=== PATIENT | female | born 1955 | race Caucasian/White ===

== ENCOUNTER 2016-08-29 14:22 | Observation (INO) ==
--- NOTE | 2016-08-29 14:39 | Emergency Department Note ---
Disposition Clinical Impression: Lower gastrointestinal hemorrhage Disposition: Admitted As Inpatient Forms: ED Satisfaction Letter GI Bleed HPI - General Chief complaint: ED GI Bleed Stated complaint: Rectal Bleeding Time Seen by Provider: 08/29/16 14:38 Source: patient Limitations: no limitations Nursing Notes Reviewed: Yes Vital Signs Reviewed: Yes - History of Present Illness Pt Subjective Complaint: blood streaked stool Onset (ago): hour(s) (6) Consistency: intermittent Severity: mild Improves with: nothing Worsens with: bowel movement Context: anticoagulant use (Aspirin and Plavix) Associated symptoms: Reports: other bleeding source (Had a colonoscopy this week ) Treatments Prior to Arrival: none - Related Data Home Medications Medication Instructions Recorded Confirmed Aspirin Enteric Coated [Aspirin EC] 81 mg PO DAILY #0 07/22/15 08/13/15 Budesonide/Formoterol 160/4.5 2 puff IH BIDR #0 07/22/15 08/13/15 [Symbicort 160/4.5] Clopidogrel Bisulfate [Plavix] 75 mg PO DAILY 07/22/15 08/13/15 Nitroglycerin [Nitrostat] 0.4 mg SL PRN PRN 07/22/15 08/13/15 Omeprazole [PriLOSEC] 40 mg PO DAILY 07/22/15 08/13/15 Vitamin E Acid Succinate [Vitamin 800 unit PO DAILY 07/22/15 08/13/15 E] Lisinopril [Zestril] 30 mg PO DAILY 08/07/15 08/13/15 Atorvastatin [Lipitor] 20 mg PO HS 08/13/15 08/13/15 Glimepiride 2 mg PO DAILY 08/13/15 08/13/15 Lasix 40 mg PO DAILY PRN 08/13/15 08/13/15 Metformin HCl 1,000 mg PO BIDWM 08/13/15 08/13/15 Metoprolol [Lopressor] 25 mg PO BID 08/13/15 08/13/15 Neurontin 200 mg PO HS 08/13/15 08/13/15 Proair Hfa 2 puff IH QID PRN 08/13/15 08/13/15 Xanax 0.25 MG Tablet 0.25 mg PO BID PRN 08/13/15 08/13/15 Previous Rx's Medication Instructions Recorded Atorvastatin [Lipitor] 80 mg PO HS tablet 07/24/15 Collagenase Oint [Santyl] 1 appl TP DAILY #1 tube 07/24/15 Isosorbide MONOnitrate (24 HR) 120 mg PO DAILY tab.er.24h 07/24/15 [Imdur] Metoprolol [Lopressor] 50 mg PO BID tablet 07/24/15 Paroxetine [Paxil] 20 mg PO DAILY tablet 07/24/15 Allergies Allergy/AdvReac Type Severity Reaction Status Date / Time Penicillins [PCN] Allergy Anaphylaxis Verified 08/29/16 14:32 Hjjccov-Fak-Sau Reductase AdvReac Intermediate See Verified 08/29/16 14:32 Inhibitor Comments [Statins] bupropion [From Wellbutrin] AdvReac Depression Verified 08/29/16 14:32 All systems ED: reviewed and negative except as stated. Constitutional: Denies: weakness Cardiovascular: Denies: chest pain Gastrointestinal: Denies: nausea, vomiting, hematemesis Past Medical History - Past Medical History Source: patient, old records reviewed, nursing notes reviewed Medical history: Reports: COPD, coronary artery disease, diabetes, GERD, hyperlipidemia, hypertension, myocardial infarction Surgical history: Reports: cholecystectomy, coronary bypass (CABG), other Psychiatric history: Reports: no psych history - Social History Smoking Status: Former smoker Smokeless Tobacco Status: No Alcohol use: Reports: none Drug use: Reports: none Physical Exam - General Limitations: no limitations General appearance: alert, in no apparent distress - Head Head exam: atraumatic, normocephalic, normal inspection - Eye Eye exam: Present: normal appearance, PERRL, EOMI - Expanded Eye Exam Pupils: Left: reactive - ENT ENT exam: normal exam, normal oropharynx, mucous membranes moist - Expanded ENT Exam External ear exam: Present: normal external inspection Mouth exam: Present: normal external inspection Teeth exam: Present: normal inspection Throat exam: Present: normal inspection - Neck Neck exam: Present: normal inspection, full ROM, trachea midline - Chest Chest inspection: Present: normal inspection, symmetric chest wall rise - Respiratory Respiratory exam: Present: normal lung sounds bilaterally - Cardiovascular Cardiovascular exam: Present: regular rate, normal rhythm, normal heart sounds - Abdominal Exam Abdominal exam: Present: soft, Non-Tender. Absent: tenderness, distention, guarding, rebound, rigidity - Rectal Exam Account Service Representative present during exam: Yes Rectal exam: Present: normal inspection, normal rectal tone, bloody stool ( maroon ) - Extremities Exam Extremities exam: Present: normal inspection, full ROM. Absent: tenderness, pedal edema - Expanded Upper Extremity Exam Shoulder exam: Present: normal inspection, full ROM Arm exam: Present: normal inspection, full ROM Elbow exam: Present: normal inspection, full ROM Forearm/Wrist exam: Present: normal inspection, full ROM Hand exam: Present: normal inspection, full ROM Vascular exam: Normal: capillary refill, radial pulse - Expanded Lower Extremity Exam Hip/Pelvis exam: Present: normal inspection, full ROM Upper leg exam: Present: normal inspection, full ROM Knee exam: Present: normal inspection, full ROM Lower leg exam: Present: normal inspection, full ROM Ankle exam: Present: normal inspection, full ROM Foot/toe exam: Present: normal inspection, full ROM Neurovascular/Tendon exam: Absent: motor deficit, sensory deficit, tendon deficit - Back Exam Back exam: Present: normal inspection, full ROM. Absent: tenderness - Neurological Exam Neurological exam: Present: alert, oriented X3 - Expanded Neurological Exam Patient oriented to: Present: person, place, time Coma Scale Eye Opening: Spontaneous Coma Scale Motor Response: Obeys Commands Coma Scale Verbal Response: Oriented Coma Scale Total: 15 - Psychiatric Psychiatric exam: Present: normal affect, normal mood - Skin Skin exam: Present: warm, dry, intact, normal color Course - Consultations Consultation #1: Dr. Wilson will admit to his service Time: 16:15 Vital Signs Temperature 98.1 F 08/29/16 14:32 Pulse Rate 68 08/29/16 14:32 Respiratory Rate 16 08/29/16 14:32 Blood Pressure 161/70 08/29/16 14:32 O2 Sat by Pulse Oximetry 95 08/29/16 14:32 Temperature 98.1 F 08/29/16 14:32 Pulse Rate 68 08/29/16 14:32 Respiratory Rate 16 08/29/16 14:32 Blood Pressure 161/70 08/29/16 14:32 O2 Sat by Pulse Oximetry 95 08/29/16 14:32 Oxygen Delivery Oxygen Delivery Room Air GI Bleed - Differential Diagnosis Likely: hemorrhoids, esophageal varices, gastritis, melena, anal fissure - Medical Records Medical records reviewed: Yes I reviewed the patient's medical records. - Lab Data Lab results reviewed: Yes I reviewed the patient's lab results. Result diagrams: 08/29/16 14:56 08/29/16 14:56 Lab Results 08/29/16 08/29/16 08/29/16 Range/Units 14:56 14:56 14:56 WBC 11.3 H (4.3-11.1) K/mcL RBC 3.94 (3.82-4.97) M/mcL Hgb 11.7 (11.5-15.4) g/dL Hct 36.4 (35.3-44.9) % MCV 92.4 (83.0-100.0) fL MCH 29.7 (28.0-33.3) pg MCHC 32.1 (31.6-35.5) g/dL RDW 13.5 (11.5-14.5) % Plt Count 326 (140-400) K/mcL MPV 10.1 (9.4-12.4) fL Immature Gran % 0.4 (0-4) % Seg Neutrophils % 48.2 % Lymphocytes % 41.9 % Monocytes % 7.1 % Eosinophils % 1.9 % Basophils % 0.5 % Neutrophils # 5.4 (1.6-8.9) K/mcL Lymphocytes # 4.7 H (0.6-4.6) K/mcL Monocytes # 0.8 (0.0-1.3) K/mcL Eosinophils # 0.2 (0.0-0.6) K/mcL Basophils # 0.1 (0.0-0.2) K/mcL PT 12.0 (9.4-12.1) Seconds INR 1.1 APTT 35.1 (26.0-36.0) Seconds Sodium 142 (136-145) mEq/L Potassium 4.3 (3.5-4.5) mEq/L Chloride 107 (98-109) mEq/L Carbon Dioxide 25 (19-29) mEq/L BUN 15 (7-20) mg/dL Creatinine 0.79 (0.57-1.11) mg/dL Est GFR ( Amer) > 60 (> 60) Est GFR (Non-Af Amer) > 60 (> 60) BUN/Creatinine Ratio 19 (6-26) Glucose 143 H (70-99) mg/dL Calculated Osmolality 297 (280-300) Calcium 10.0 (8.6-10.8) mg/dL Blood Type Antibody Screen 08/29/16 Range/Units 14:56 WBC (4.3-11.1) K/mcL RBC (3.82-4.97) M/mcL Hgb (11.5-15.4) g/dL Hct (35.3-44.9) % MCV (83.0-100.0) fL MCH (28.0-33.3) pg MCHC (31.6-35.5) g/dL RDW (11.5-14.5) % Plt Count (140-400) K/mcL MPV (9.4-12.4) fL Immature Gran % (0-4) % Seg Neutrophils % % Lymphocytes % % Monocytes % % Eosinophils % % Basophils % % Neutrophils # (1.6-8.9) K/mcL Lymphocytes # (0.6-4.6) K/mcL Monocytes # (0.0-1.3) K/mcL Eosinophils # (0.0-0.6) K/mcL Basophils # (0.0-0.2) K/mcL PT (9.4-12.1) Seconds INR APTT (26.0-36.0) Seconds Sodium (136-145) mEq/L Potassium (3.5-4.5) mEq/L Chloride (98-109) mEq/L Carbon Dioxide (19-29) mEq/L BUN (7-20) mg/dL Creatinine (0.57-1.11) mg/dL Est GFR ( Amer) (> 60) Est GFR (Non-Af Amer) (> 60) BUN/Creatinine Ratio (6-26) Glucose (70-99) mg/dL Calculated Osmolality (280-300) Calcium (8.6-10.8) mg/dL Blood Type O NEGATIVE Antibody Screen NEGATIVE - Radiology Data Radiology results reviewed: Yes I reviewed the patient's radiology results.
[2016-08-29 15:03] LABS: Basophils # 0.1 K/mcL (0.0-0.2); Basophils % 0.5 %; Eosinophils # 0.2 K/mcL (0.0-0.6); Eosinophils % 1.9 %; Hematocrit 36.4 % (35.3-44.9); Hemoglobin 11.7 g/dL (11.5-15.4); Immature Granulocytes % 0.4 % (0-4); Lymphocytes # 4.7 K/mcL (0.6-4.6); Lymphocytes % 41.9 %; Mean Corpuscular HGB Conc 32.1 g/dL (31.6-35.5); Mean Corpuscular Hemoglobin 29.7 pg (28.0-33.3); Mean Corpuscular Volume 92.4 fL (83.0-100.0); Mean Platelet Volume 10.1 fL (9.4-12.4); Monocytes # 0.8 K/mcL (0.0-1.3); Monocytes % 7.1 %; Neutrophils # 5.4 K/mcL (1.6-8.9); Platelet Count 326 K/mcL (140-400); Red Blood Count 3.94 M/mcL (3.82-4.97); Red Cell Distribution Width 13.5 % (11.5-14.5); Segmented Neutrophils % 48.2 %
[2016-08-29 15:08] LABS: INR 1.1
[2016-08-29 15:10] LABS: Activated Partial Thrombo Time 35.1 Seconds (26.0-36.0)
[2016-08-29 15:15] LABS: BUN/Creatinine Ratio 19 (6-26); Blood Urea Nitrogen 15 mg/dL (7-20); Carbon Dioxide 25 mEq/L (19-29); Chloride 107 mEq/L (98-109); Glucose 143 mg/dL (70-99); Osmolality,Calculated 297 (280-300); Potassium 4.3 mEq/L (3.5-4.5); Sodium 142 mEq/L (136-145); eGFR For African Americans > 60 (> 60); eGFR For Non-African Americans > 60 (> 60)
[2016-08-29] MEDS ORDERED: ALPRAZolam 0.25 MG TABLET PO PRN (18:51)
[2016-08-29] MEDS ORDERED: Furosemide 40 MG TABLET PO PRN (18:51)
[2016-08-29 19:28] LABS: Hematocrit 35.4 % (35.3-44.9); Hemoglobin 11.3 g/dL (11.5-15.4)
[2016-08-29] MEDS ORDERED: Gabapentin 100 MG CAPSULE PO SCH (21:00)
[2016-08-29] MEDS: *HR* Metformin 500 MG TABLET PO SCH (22:01)
[2016-08-29] MEDS: (Omega-3/Dha/Epa/Fish Oil [Fish Oil 1,000 Mg Softgel]) PO SCH (22:01)
[2016-08-29] MEDS: Budesonide/Formoterol 160/4.5 MDI IH SCH (22:30)
[2016-08-30 05:41] LABS: Hematocrit 36.6 % (35.3-44.9)
[2016-08-30] MEDS: *HR* Metformin 500 MG TABLET PO SCH (08:56)
[2016-08-30] MEDS: (Omega-3/Dha/Epa/Fish Oil [Fish Oil 1,000 Mg Softgel]) PO SCH (08:57)
[2016-08-30] MEDS ORDERED: Isosorbide MONOnitrate (24 HR) 60 MG TAB.ER.24H PO SCH (09:00)
[2016-08-30] MEDS ORDERED: (Saxagliptin Hcl [Onglyza] 5 MG) PO SCH (09:00)
[2016-08-30] MEDS ORDERED: amLODIPine 5 MG TABLET PO SCH (09:00)
[2016-08-30] MEDS ORDERED: Lisinopril 20 MG TABLET PO SCH (09:00)
[2016-08-30] MEDS: Budesonide/Formoterol 160/4.5 MDI IH SCH (10:45)
--- NOTE | 2016-08-30 14:05 | General Surg History&Physical ---
Date of Encounter: 08/30/16 Time of Encounter: 13:52 History of Present Illness Chief complaint: Rectal bleeding HPI: Ms. Manzo is a 61 year old female, patient of Dr Villalobos and Kristy Beard CNP, admitted for further observation after presenting to the emergency department with rectal bleeding. Patient is status post colonoscopy with polypectomy, 08/23. The patient tolerated the procedure well but yesterday had 3 episodes of bright red rectal bleeding. The patient had no accompanying abdominal pain, dizziness, or lightheadedness but the bleeding was described as copious prompting the patient to present to the emergency department. In the emergency department the patient remained hemodynamically stable, H&H was 11.7 and 36.4. Prior H&H on 07/30/16 was 12.0 and 36.7. The patient was admitted for further observation and serial H&H's. Past medical history: COPD; sleep apnea; diabetes mellitus; hypertension; peripheral vascular disease; pulmonary hypertension; hyperlipidemia; coronary artery disease with prior SD in 2004 and again 07/2015 for which the patient has undergone CABG 2 as well as multiple coronary stent placements 2004, 2009, 2011 , 2013, 2015. Surgical history as noted above; CABG 2; coronary stent; colonoscopy, most recently completed 08/23/16. Allergies: Statins, penicillin, Wellbutrin Medications: Unchanged from previous admission pertaining to the colonoscopy. Social history: G2, P2; patient quit smoking several years ago, admitting to 1 pack per day for 25 years. Patient denies any alcohol or illicit drug use Physical examination: Age-appropriate, obese, in no acute distress. Height 1.65 m; weight 102.3 kg, BMI 37.5; the patient has been afebrile since presentation to the emergency department; pulse 53-56; respirations 16-20; blood pressure 132/72 (stable). SPO2 on room air 94-95%. Skin: Warm, no obvious jaundice Lungs: Clear Cardiac: Rate slow but no appreciable murmurs Abdomen: Soft nontender. Obvious intra-abdominal masses. No rebound. Extremities: No obvious clubbing cyanosis or edema Impression: 61-year-old female, patient of Dr. Villalobos and Kristy Beard CNP, admitted for observation after presenting to [facility] ED with several episodes of bright red, painless rectal bleeding. The patient is status post colonoscopy with polypectomy, 08/23/16. The rectal bleeding is most likely related to this procedure. Biopsy results were benign - tubular adenoma approx 3 mm in greatest diameter. Repeat H&H shortly after reaching the floor, 11.3 and 35.4. In the emergency department the H&H was 11.7 and 36.4. The patient is currently hemodynamically stable but at risk for continued bleeding that may require intervention. Plan: observation admission with serial H&H. Will allow clear liquid diet and routine medications except Aspirin and Clopidogrel. If the patient remains stable - no further intervention will be necessary. Past Med Surg Social Fam HX - Past Medical History Medical history: COPD, coronary artery disease, diabetes, GERD, hyperlipidemia, hypertension, myocardial infarction Psychiatric history: no psych history - Past Surgical History Surgical History: cholecystectomy, coronary bypass (CABG), other - Social History Smoking Status: Former smoker Smokeless Tobacco Status: No Alcohol use: none Drug use: none - Family History Mother Living Status: Hx Family Cancer: Yes Daughter Adopted: No Family Member Ethnicity: Non- Living Status: Still Living Hx Family Cardiac Disorders: No Hx Family Respiratory Disorders: No Hx Family Cancer: No Hx Family GI Disorders: No Hx Family Endocrine Disorder: No Hx Family Neuromuscular Disorders: No Hx Family Neurologic Disorders: No Hx Family HEENT Disorders: No Hx Family Autoimmune Disorders: No Medications and Allergies Aspirin Enteric Coated [Aspirin EC] 81 mg PO DAILY #0 07/22/15 [History] Budesonide/Formoterol 160/4.5 [Symbicort 160/4.5] 2 puff IH BIDR #0 07/22/15 [ History] Clopidogrel Bisulfate [Plavix] 75 mg PO DAILY 07/22/15 [History] Nitroglycerin [Nitrostat] 0.4 mg SL PRN PRN 07/22/15 [History] Omeprazole [PriLOSEC] 40 mg PO DAILY 07/22/15 [History] Vitamin E Acid Succinate [Vitamin E] 800 unit PO DAILY 07/22/15 [History] Isosorbide MONOnitrate (24 HR) [Imdur] 120 mg PO DAILY tab.er.24h 07/24/15 [Rx] Paroxetine [Paxil] 20 mg PO DAILY tablet 07/24/15 [Rx] Lisinopril [Zestril] 40 mg PO DAILY 08/07/15 [History] ALPRAZolam [Xanax 0.25 MG Tablet] 0.25 mg PO BID PRN 08/13/15 [History] Albuterol Sulfate [Proair Hfa] 2 puff IH Q4H PRN 08/13/15 [History] Atorvastatin [Lipitor] 40 mg PO HS 08/13/15 [History] Furosemide [Lasix] 40 mg PO DAILY PRN 08/13/15 [History] Gabapentin [Neurontin] 200 mg PO HS 08/13/15 [History] Metformin HCl [Glucophage] 1,000 mg PO BID 08/13/15 [History] Metoprolol [Lopressor] 25 mg PO BID 08/13/15 [History] [place]-3/Dha/Epa/Fish Oil [Fish Oil 1,000 mg Softgel] 1,000 mg PO BID 08/29/16 [ History] Saxagliptin HCl [Onglyza] 5 mg PO DAILY 08/29/16 [History] amLODIPine [Norvasc] 5 mg PO DAILY 08/29/16 [History] Allergies Penicillins [PCN] Allergy (Verified 08/29/16 14:32) Anaphylaxis Qgflopi-Xll-Hdf Reductase Inhibitor [Statins] Adverse Reaction (Intermediate, Verified 08/29/16 14:32) See Comments increased liver enzymes bupropion [From Wellbutrin] Adverse Reaction (Verified 08/29/16 14:32) Depression Review of Systems All systems PM: A 10-system review of systems was performed and is negative for pertinent findings except as documented above in the HPI. General Surgery Exam Initial Vital Signs Temp Pulse Resp BP Pulse Ox 98.1 F 68 16 161/70 95 08/29/16 14:32 08/29/16 14:32 08/29/16 14:32 08/29/16 14:32 08/29/16 14:32 Results - Labs 08/30/16 05:04 08/29/16 14:56 Abnormal lab results WBC 11.3 K/mcL (4.3-11.1) H 08/29/16 14:56 Lymphocytes # 4.7 K/mcL (0.6-4.6) H 08/29/16 14:56 Glucose 143 mg/dL (70-99) H 08/29/16 14:56 POC Glucose 191 (58-89) H 08/30/16 11:27 All other labs normal.
--- NOTE | 2016-08-30 14:10 | General Surgery Progress Note ---
Date of Encounter: 08/30/16 Time of Encounter: 14:06 Subjective Patient reports: no new complaints (no further rectal bleeding) Narrative: General Surgery Progress Note / Discharge Summary Hospital day #1 - patient has remained afebrile, hemodynamically stable through the night. No further rectal bleeding detected I patient or noted by nursing. Repeat H&H 12.0, 36.6. Patient describes the feeling well, voicing no complaints Lungs: Clear Cardiac: Rate remained slow, proximally 56 bpm; no obvious murmurs Abdomen: Soft nontender. Impression: Post-polypectomy lower GI bleed; stable with spontaneous solution Status post colonoscopy with polypectomy, 08/23/16. A benign tubular adenoma was removed. Multiple stable medical comorbidities including: COPD, sleep apnea, diabetes mellitus, hypertension, peripheral vascular disease, pulmonary hypertension, hyperlipidemia, CAD with prior [place] 2. Plan: Discharge home Follow-up in my office as needed Repeat colonoscopy recommended in 5 years. Continue home meds without interruption; resume aspirin and clopidogrel in a.m. Objective Vital Signs - Last 8 Hours Temp Pulse Resp BP Pulse Ox 08/30/16 12:15 97.6 F 56 20 132/72 95 08/30/16 10:46 16 94 08/30/16 07:02 97.4 F L 53 18 167/73 94 Intake and Output 08/29/16 08/30/16 08/30/16 23:59 07:59 15:59 Intake Total 0 / 0 1640 / 1640 144 / 144 Output Total 900 / 900 300 / 300 840 / 840 Balance -900 / -900 1340 / 1340 -696 / -696 Intake: Oral 0 / 0 1640 / 1640 144 / 144 Output: Urine 900 / 900 300 / 300 840 / 840 Other: Meal Lunch Percent of Meal Consumed 100% # Bowel Movements 2 Weight 102.33 kg 102.33 kg Blood Glucose* 105 131 191 Patient Weight 08/30/16 23:59 Weight 102.33 kg - Labs 08/30/16 05:04 08/29/16 14:56 Consult Discharge Plan - Plan Referrals: Usman Villalobos MD [Primary Care Provider] -
--- NOTE | 2016-08-30 14:14 | Discharge Summary ---
Outpatient Proc Discharge Plan - Plan Additional Instructions: regular diet (diabetic) Activity as tolerated Contact my office if further rectal bleeding Continue home meds Resume aspirin and clopidogrel in a.m. copy office note to Dr Villalobos Home Medications: Aspirin Enteric Coated [Aspirin EC] 81 mg PO DAILY #0 07/22/15 [History] Budesonide/Formoterol 160/4.5 [Symbicort 160/4.5] 2 puff IH BIDR #0 07/22/15 [ History] Clopidogrel Bisulfate [Plavix] 75 mg PO DAILY 07/22/15 [History] Nitroglycerin [Nitrostat] 0.4 mg SL PRN PRN 07/22/15 [History] Omeprazole [PriLOSEC] 40 mg PO DAILY 07/22/15 [History] Vitamin E Acid Succinate [Vitamin E] 800 unit PO DAILY 07/22/15 [History] Isosorbide MONOnitrate (24 HR) [Imdur] 120 mg PO DAILY tab.er.24h 07/24/15 [Rx] Paroxetine [Paxil] 20 mg PO DAILY tablet 07/24/15 [Rx] Lisinopril [Zestril] 40 mg PO DAILY 08/07/15 [History] ALPRAZolam [Xanax 0.25 MG Tablet] 0.25 mg PO BID PRN 08/13/15 [History] Albuterol Sulfate [Proair Hfa] 2 puff IH Q4H PRN 08/13/15 [History] Atorvastatin [Lipitor] 40 mg PO HS 08/13/15 [History] Furosemide [Lasix] 40 mg PO DAILY PRN 08/13/15 [History] Gabapentin [Neurontin] 200 mg PO HS 08/13/15 [History] Metformin HCl [Glucophage] 1,000 mg PO BID 08/13/15 [History] Metoprolol [Lopressor] 25 mg PO BID 08/13/15 [History] [place]-3/Dha/Epa/Fish Oil [Fish Oil 1,000 mg Softgel] 1,000 mg PO BID 08/29/16 [ History] Saxagliptin HCl [Onglyza] 5 mg PO DAILY 08/29/16 [History] amLODIPine [Norvasc] 5 mg PO DAILY 08/29/16 [History]
[2016-08-30 15:28] VITALS: BP 123/68
--- NOTE | 2016-08-30 18:26 | Electrocardiograph Report ---
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
== END 2016-08-30 16:00 | disposition home or self-care (01) ==
LOC: EMEROO 14:22 → 3ANU 14:22
PROVIDERS: ADMIT Surgery; ATTEND Surgery

== ENCOUNTER 2016-11-25 12:36 | Observation (INO) ==
--- NOTE | 2016-11-25 13:16 | Emergency Department Note ---
Disposition Clinical Impression: Exertional dyspnea, Chest pain, rule out acute myocardial infarction Disposition: Admitted As Inpatient Condition: Fair Time of Disposition: 15:46 Chest Pain HPI - General Chief Complaint: ED Shortness of Breath/Dyspnea Stated Complaint: RUBIN, HTN Time Seen by Provider: 11/25/16 12:40 Source: patient Limitations: no limitations Vital Signs Reviewed: Yes Nursing Notes Reviewed: Yes - History of Present Illness HPI Narrative: Patient is a 61-year-old female who presents to [facility] ED with a chief complaint of exertional dyspnea and pain between her shoulder blades. States her symptoms started earlier today. Past medical history significant for CABG back in 2004 followed by a cleanout of her arteries this last July. She follows with hangersmith Dr. Kumari. States when she started developing these symptoms today also had worsening weakness and feeling out of breath with walking less than 30 feet. Denies any prior history of heart failure though she is on Lasix. Patient does continue to take aspirin and Plavix. She called her hangersmith's office today when she started experiencing these symptoms and they recommended her come to the emergency department to get checked out. Pt complaint: chest pain Onset (ago): hour(s) Duration: gradually worsening Onset: during exertion Pain Location: other (Mid back) Severity: mild Severity scale (1-10): 0 Quality: aching Pain Radiation: none Improves with: nothing Worsens with: nothing Associated symptoms: Reports: dyspnea. Denies: nausea, vomiting, diaphoresis Treatments prior to arrival chest pain: none - Related Data Home Medications Medication Instructions Recorded Confirmed Aspirin Enteric Coated [Aspirin EC] 81 mg PO DAILY #0 07/22/15 11/25/16 Budesonide/Formoterol 160/4.5 2 puff IH BIDR #0 07/22/15 11/25/16 [Symbicort 160/4.5] Clopidogrel Bisulfate [Plavix] 75 mg PO DAILY 07/22/15 11/25/16 Nitroglycerin [Nitrostat] 0.4 mg SL PRN PRN 07/22/15 11/25/16 Omeprazole [PriLOSEC] 40 mg PO DAILY 07/22/15 11/25/16 Vitamin E Acid Succinate [Vitamin 800 unit PO DAILY 07/22/15 11/25/16 E] Lisinopril [Zestril] 40 mg PO DAILY 08/07/15 11/25/16 Albuterol Sulfate [Proair Hfa] 2 puff IH Q4H PRN 08/13/15 11/25/16 Atorvastatin [Lipitor] 40 mg PO HS 08/13/15 11/25/16 Furosemide [Lasix] 40 mg PO DAILY PRN 08/13/15 11/25/16 Metformin HCl [Glucophage] 1,000 mg PO BID 08/13/15 11/25/16 Metoprolol [Lopressor] 25 mg PO BID 08/13/15 11/25/16 Saxagliptin HCl [Onglyza] 5 mg PO DAILY 08/29/16 11/25/16 amLODIPine [Norvasc] 5 mg PO DAILY 08/29/16 11/25/16 Gabapentin [Neurontin] 600 mg PO BID 11/25/16 11/25/16 Glimepiride [Amaryl] 2 mg PO QAM 11/25/16 11/25/16 Krill/Om-3/Dha/Epa/Phospho/Ast 1 each PO DAILY 11/25/16 11/25/16 [Krill Oil 1,000 mg Softgel] predniSONE [PredniSONE] 20 mg PO DAILY 11/25/16 11/25/16 Previous Rx's Medication Instructions Recorded Isosorbide MONOnitrate (24 HR) 120 mg PO DAILY tab.er.24h 07/24/15 [Imdur] Paroxetine [Paxil] 20 mg PO DAILY tablet 07/24/15 Allergies Allergy/AdvReac Type Severity Reaction Status Date / Time Penicillins [PCN] Allergy Anaphylaxis Verified 08/29/16 14:32 Fwyechl-Cuc-Baw Reductase AdvReac Intermediate See Verified 08/29/16 14:32 Inhibitor Comments [Statins] bupropion [From Wellbutrin] AdvReac Depression Verified 08/29/16 14:32 All systems ED: reviewed and negative except as stated. Chest Pain PMH - Past Medical History Medical history: Reports: COPD, coronary artery disease, diabetes, GERD, hyperlipidemia, hypertension, myocardial infarction Surgical history: Reports: cholecystectomy, coronary bypass (CABG), other Psychiatric history: Reports: no psych history - Social History Smoking Status: Former smoker Alcohol use: Reports: none Drug use: Reports: none Physical Exam - General Limitations: no limitations General appearance: alert, in no apparent distress - Head Head exam: atraumatic, normocephalic, normal inspection - Eye Eye exam: Present: normal appearance, PERRL, EOMI - ENT ENT exam: normal exam, normal oropharynx, mucous membranes moist - Neck Neck exam: Present: normal inspection, full ROM, trachea midline - Chest Chest inspection: Present: normal inspection, symmetric chest wall rise - Respiratory Respiratory exam: Present: normal lung sounds bilaterally - Cardiovascular Cardiovascular exam: Present: regular rate, normal rhythm, normal heart sounds - Abdominal Exam Abdominal exam: Present: soft, Non-Tender. Absent: tenderness, distention, guarding, rebound, rigidity - Extremities Exam Extremities exam: Present: normal inspection, full ROM. Absent: tenderness, pedal edema - Back Exam Back exam: Present: normal inspection, full ROM. Absent: tenderness - Neurological Exam Neurological exam: Present: alert - Psychiatric Psychiatric exam: Present: normal affect, normal mood - Skin Skin exam: Present: warm, dry, intact, normal color Course Course Narrative: Patient seen and examined. Exertional dyspnea and pain in her back. Prior extensive cardiac disease. Has never had any exertional dyspnea in the past. She does not have any risk factors for pulmonary embolus. Her oxygen saturations are 96% on room air and she is not tachycardic. Cardiopulmonary workup was initiated. - Reevaluation(s) Reevaluation #1: Patient's lab work appears unremarkable although her lactate is slightly elevated at 3.2. We will admit for exertional dyspnea and chest pain, rule out ACS. Patient would benefit from an echocardiogram due to her heart history and worsening exertional dyspnea. Time: 15:02 Reevaluation #2: I spoke with hospitalist Dr. Joseph who has accepted patient for admission. Time: 15:43 Vital Signs Temperature 97.5 F L 11/25/16 12:37 Pulse Rate 78 11/25/16 12:37 Respiratory Rate 20 11/25/16 12:37 Blood Pressure 176/89 11/25/16 12:37 O2 Sat by Pulse Oximetry 96 11/25/16 12:37 Temperature 97.5 F L 11/25/16 12:37 Pulse Rate 72 11/25/16 15:21 Respiratory Rate 16 11/25/16 16:18 Blood Pressure 150/78 11/25/16 16:18 O2 Sat by Pulse Oximetry 95 11/25/16 15:21 Oxygen Delivery Oxygen Delivery Room Air Chest Pain - Medical Records Medical records reviewed: Yes I reviewed the patient's medical records. - Lab Data Lab results reviewed: Yes I reviewed the patient's lab results. Result diagrams: 11/25/16 13:14 11/25/16 13:14 Lab Results 11/25/16 11/25/16 11/25/16 Range/Units 13:14 13:14 13:14 WBC 8.6 (4.3-11.1) K/mcL RBC 4.09 (3.82-4.97) M/mcL Hgb 12.0 (11.5-15.4) g/dL Hct 37.1 (35.3-44.9) % MCV 90.7 (83.0-100.0) fL MCH 29.3 (28.0-33.3) pg MCHC 32.3 (31.6-35.5) g/dL RDW 13.3 (11.5-14.5) % Plt Count 316 (140-400) K/mcL MPV 10.3 (9.4-12.4) fL Immature Gran % 0.3 (0-4) % Seg Neutrophils % 53.6 % Lymphocytes % 33.1 % Monocytes % 10.1 % Eosinophils % 2.3 % Basophils % 0.6 % Neutrophils # 4.6 (1.6-8.9) K/mcL Lymphocytes # 2.9 (0.6-4.6) K/mcL Monocytes # 0.9 (0.0-1.3) K/mcL Eosinophils # 0.2 (0.0-0.6) K/mcL Basophils # 0.1 (0.0-0.2) K/mcL Sodium 139 (136-145) mEq/L Potassium 4.2 (3.5-4.5) mEq/L Chloride 105 (98-109) mEq/L Carbon Dioxide 25 (19-29) mEq/L BUN 12 (7-20) mg/dL Creatinine 0.76 (0.57-1.11) mg/dL Est GFR ( Amer) > 60 (> 60) Est GFR (Non-Af Amer) > 60 (> 60) BUN/Creatinine Ratio 16 (6-26) Glucose 186 H (70-99) mg/dL Calculated Osmolality 293 (280-300) Lactic Acid 3.2 H (0.5-2.2) mmol/L Calcium 10.1 (8.6-10.8) mg/dL Troponin I (0-0.03) ng/mL B-Natriuretic Peptide (0-100) pg/mL 11/25/16 11/25/16 Range/Units 13:14 13:14 WBC (4.3-11.1) K/mcL RBC (3.82-4.97) M/mcL Hgb (11.5-15.4) g/dL Hct (35.3-44.9) % MCV (83.0-100.0) fL MCH (28.0-33.3) pg MCHC (31.6-35.5) g/dL RDW (11.5-14.5) % Plt Count (140-400) K/mcL MPV (9.4-12.4) fL Immature Gran % (0-4) % Seg Neutrophils % % Lymphocytes % % Monocytes % % Eosinophils % % Basophils % % Neutrophils # (1.6-8.9) K/mcL Lymphocytes # (0.6-4.6) K/mcL Monocytes # (0.0-1.3) K/mcL Eosinophils # (0.0-0.6) K/mcL Basophils # (0.0-0.2) K/mcL Sodium (136-145) mEq/L Potassium (3.5-4.5) mEq/L Chloride (98-109) mEq/L Carbon Dioxide (19-29) mEq/L BUN (7-20) mg/dL Creatinine (0.57-1.11) mg/dL Est GFR ( Amer) (> 60) Est GFR (Non-Af Amer) (> 60) BUN/Creatinine Ratio (6-26) Glucose (70-99) mg/dL Calculated Osmolality (280-300) Lactic Acid (0.5-2.2) mmol/L Calcium (8.6-10.8) mg/dL Troponin I 0.00 (0-0.03) ng/mL B-Natriuretic Peptide 88 (0-100) pg/mL - Radiology Data Radiology results reviewed: Yes I reviewed the patient's radiology results. Chest X-Ray 11/25/16 13:04 IMPRESSION: No acute process. D/ / Johnny Abad MD / Johnny Abad MD Interpreting Provider: Johnny Abad MD - EKG Data EKG attestation: Yes I reviewed and interpreted this EKG. EKG results narrative: EKG done at 1259 shows normal sinus rhythm with a rate of [address] elevation or depression. Inverted T waves in leads 1 and aVL. Left bundle branch block present. Left axis deviation. EKG appears unchanged from prior done in 08/29/2016. Heart Score - Score History: Moderately Suspicious EKG: Non Specific repolarisation Disturbance Age: 45-65 Risk Factors: Equal/Greater than 3 risk factor or history of atherosclerotic disease Troponin: Less than normal limit HEART Score Total: 5 Attestation Statement - Attestation Attestation: I examined this patient and my medical decision-making was reviewed with the Resident Physician. I agree with the documented findings, disposition and treatment plan as described except to the extent set forth below. Patient to ED with a chief complaint of dyspnea on exertion. Onset a couple weeks ago, but it is been progressive. She called her hangersmith who recommended her to come to the ED. Denies chest pain. Denies swelling in her legs. She does have a history of CHF but she does recall being on a fluid restriction in the past. History of a CABG. On exam she is awake and alert. Lungs clear. No distress. Plan. Patient's cardiac workup was unremarkable. Troponin is negative. EKG is unchanged. She is admitted for further cardiac workup.
[2016-11-25 13:22] LABS: Basophils # 0.1 K/mcL (0.0-0.2); Basophils % 0.6 %; Eosinophils # 0.2 K/mcL (0.0-0.6); Eosinophils % 2.3 %; Hematocrit 37.1 % (35.3-44.9); Immature Granulocytes % 0.3 % (0-4); Lymphocytes # 2.9 K/mcL (0.6-4.6); Lymphocytes % 33.1 %; Mean Corpuscular HGB Conc 32.3 g/dL (31.6-35.5); Mean Corpuscular Hemoglobin 29.3 pg (28.0-33.3); Mean Corpuscular Volume 90.7 fL (83.0-100.0); Mean Platelet Volume 10.3 fL (9.4-12.4); Monocytes # 0.9 K/mcL (0.0-1.3); Monocytes % 10.1 %; Neutrophils # 4.6 K/mcL (1.6-8.9); Platelet Count 316 K/mcL (140-400); Red Blood Count 4.09 M/mcL (3.82-4.97); Red Cell Distribution Width 13.3 % (11.5-14.5); Segmented Neutrophils % 53.6 %
[2016-11-25 13:39] LABS: BUN/Creatinine Ratio 16 (6-26); Blood Urea Nitrogen 12 mg/dL (7-20); Calcium 10.1 mg/dL (8.6-10.8); Carbon Dioxide 25 mEq/L (19-29); Chloride 105 mEq/L (98-109); Glucose 186 mg/dL (70-99); Osmolality,Calculated 293 (280-300); Potassium 4.2 mEq/L (3.5-4.5); Sodium 139 mEq/L (136-145); eGFR For African Americans > 60 (> 60); eGFR For Non-African Americans > 60 (> 60)
[2016-11-25] MEDS ORDERED: 0.9 % Sodium Chloride 1,000 ML IVC SCH (15:45)
[2016-11-25] MEDS ORDERED: Naloxone 0.4 MG/ML INJ IVP PRN (16:40)
[2016-11-25] MEDS ORDERED: Nitroglycerin 0.4 MG TAB.SUBL SL PRN (16:42)
[2016-11-25] MEDS ORDERED: Furosemide 40 MG TABLET PO PRN (16:42)
[2016-11-25] MEDS ORDERED: D5% in Water 1,000 ML IVC PRN (16:43)
[2016-11-25] MEDS ORDERED: *HR* Dextrose 50 % in Water (Syg) 50 ML SYRINGE IVP PRN (16:43)
[2016-11-25] MEDS ORDERED: Dextrose Gel 15 GM PO PRN ×2 (16:43)
--- NOTE | 2016-11-25 17:44 | Internal Med History&Physical ---
Date of Encounter: 11/25/16 Time of Encounter: 17:15 Assessment and Plan (1) Exertional dyspnea Current visit: Yes Status: Acute Prior echo from July 2015 reports LVEF of 55-60%, moderate LV diastolic dysfunction Will start Lasix 40mg PO qdaily will repeat 2D echo fluid restriction diet, monitor daily weight, strict I/Os if any acute change in patient's 2D echo findings, consider cardiology evaluation tele monitoring (2) Lactic acid increased Current visit: Yes Status: Acute of unclear etiology will trend LA, repeat LA improving (3) CAD (coronary artery disease) Current visit: No Status: Chronic no signs of angina present at this time continue home medications Qualifiers: Coronary Disease-Associated Artery/Lesion type: [place] artery [place] vs. transplanted heart: [place] heart Associated angina: angina presence unspecified Qualified Code(s): I25.10 - Atherosclerotic heart disease of [place] coronary artery without angina pectoris (4) DM2 (diabetes mellitus, type 2) Current visit: No Status: Chronic hold oral antihyperglycemic agents at this time started sliding scale insulin algorithm monitor fingerstick and blood glucose ADA diet Qualifiers: Diabetes mellitus complication status: without complication Diabetes mellitus manager long term care insulin use: unspecified assisted insulin use status Qualified Code(s): E11.9 - Type 2 diabetes mellitus without complications (5) Obesity (BMI 30-39.9) Current visit: No Status: Chronic (6) DVT prophylaxis Current visit: Yes Status: Acute Heparin SQ (7) Essential hypertension Current visit: Yes Status: Acute BP within acceptable range continue home medications closely monitor BP and adjust medications as needed Internal Medicine - H&P: HPI Chief complaint: elevated BP Admitted From: Home Plans for Post Hospital Care: Home History of present illness: Ms. Manzo is a 61 year old female with PMH of DM, HTN, HLD, CAD who comes to the ER for elevated BP. She states she has been having exertional dyspnea for the past few weeks and for the last couple of days she has noted persistently elevated BP. She called her psychotherapist counselor's office earlier today due to her elevated BP and as per the TRAVELING ACCOUNTANT at the psychotherapist counselor's office she came to the ER. Upon arrival to the ER, she was found to have BP of 176/89 however states that she took her medications prior to coming to the hospital. She denies any chest pain at any point, contrary to the ER records. She states she apart from the exertional dyspnea, she feels well. She is not able to ambulate much around the house without getting severely short of breath. She received Aspirin en route to the ER and has not received any medication since her arrival to the hospital. Her current BP is within acceptable range and she denies any discomfort or distress at rest. She denies any headache, chest pain, sob, abd pain, n/v, fever, or chills. Code status: Full code Past Med Surg Social Fam HX - Past Medical History Medical history: COPD, coronary artery disease, diabetes, GERD, hyperlipidemia, hypertension, myocardial infarction Psychiatric history: no psych history - Past Surgical History Surgical History: cholecystectomy, coronary bypass (CABG) - Social History Smoking Status: Former smoker Smokeless Tobacco Status: No Alcohol use: none Drug use: none - Family History Mother Living Status: Hx Family Cancer: Yes Daughter Adopted: No Family Member Ethnicity: Non- Living Status: Still Living Hx Family Cardiac Disorders: No Hx Family Respiratory Disorders: No Hx Family Cancer: No Hx Family GI Disorders: No Hx Family Endocrine Disorder: No Hx Family Neuromuscular Disorders: No Hx Family Neurologic Disorders: No Hx Family HEENT Disorders: No Hx Family Autoimmune Disorders: No Internal Medicine - H&P: Meds Aspirin Enteric Coated [Aspirin EC] 81 mg PO DAILY #0 07/22/15 [History] Budesonide/Formoterol 160/4.5 [Symbicort 160/4.5] 2 puff IH BIDR #0 07/22/15 [ History] Clopidogrel Bisulfate [Plavix] 75 mg PO DAILY 07/22/15 [History] Nitroglycerin [Nitrostat] 0.4 mg SL PRN PRN 07/22/15 [History] Omeprazole [PriLOSEC] 40 mg PO DAILY 07/22/15 [History] Vitamin E Acid Succinate [Vitamin E] 800 unit PO DAILY 07/22/15 [History] Isosorbide MONOnitrate (24 HR) [Imdur] 120 mg PO DAILY tab.er.24h 07/24/15 [Rx] Paroxetine [Paxil] 20 mg PO DAILY tablet 07/24/15 [Rx] Lisinopril [Zestril] 40 mg PO DAILY 08/07/15 [History] Albuterol Sulfate [Proair Hfa] 2 puff IH Q4H PRN 08/13/15 [History] Atorvastatin [Lipitor] 40 mg PO HS 08/13/15 [History] Furosemide [Lasix] 40 mg PO DAILY PRN 08/13/15 [History] Metformin HCl [Glucophage] 1,000 mg PO BID 08/13/15 [History] Metoprolol [Lopressor] 25 mg PO BID 08/13/15 [History] Saxagliptin HCl [Onglyza] 5 mg PO DAILY 08/29/16 [History] amLODIPine [Norvasc] 5 mg PO DAILY 08/29/16 [History] Gabapentin [Neurontin] 600 mg PO BID 11/25/16 [History] Glimepiride [Amaryl] 2 mg PO QAM 11/25/16 [History] Krill/Om-3/Dha/Epa/Phospho/Ast [Krill Oil 1,000 mg Softgel] 1 each PO DAILY [History] predniSONE [PredniSONE] 20 mg PO DAILY 11/25/16 [History] 3 Allergy/AdvReac Type Severity Reaction Status Date / Time Penicillins [PCN] Allergy Anaphylaxis Verified 08/29/16 14:32 Izesobm-Dzz-Stu Reductase AdvReac Intermediate See Verified 08/29/16 14:32 Inhibitor Comments [Statins] bupropion [From Wellbutrin] AdvReac Depression Verified 08/29/16 14:32 All Systems PM: A 10-system review of systems was performed and is negative for pertinent findings except as documented above in the HPI. - Constitutional Constitutional: as per HPI - Constitutional Vitals: Temp Pulse Resp BP Pulse Ox 97.4 F L 69 15 137/83 96 11/25/16 16:36 11/25/16 16:36 11/25/16 16:36 11/25/16 16:36 11/25/16 16:36 General appearance: Present: cooperative, A&O X 3, morbidly obese, pleasant, no acute distress, answers questions appropriately - Head Head exam: Present: atraumatic, normocephalic - Eye Eye exam: Present: conjuntiva pink, sclera anicteric - Respiratory Respiratory exam: Absent: respiratory distress, wheezes (bibasilar crackles) - Cardiovascular Cardiovascular exam: Present: RRR, +S1, +S2. Absent: diastolic murmur, gallop, rubs, systolic murmur - GI/Abdominal GI/Abdominal exam: Present: normal bowel sounds, soft, no peritoneal signs. Absent: distended, tenderness - Extremities Exam Extremities exam: Present: pedal edema, warm, radial pulses palpable and symmetrical. Absent: calf tenderness - Neurological Exam Neurological exam: Present: alert, oriented X3 - Psychiatric Psychiatric exam: Present: normal affect, normal mood Internal Med - H&P Results - Labs CBC & Chem 7: 11/25/16 13:14 11/25/16 13:14
[2016-11-25] MEDS: *HR* Heparin 5,000 UNIT/ML VIAL SQ SCH (18:08)
[2016-11-25] MEDS: Furosemide 40 MG TABLET PO SCH (18:08)
[2016-11-25] MEDS: Gabapentin 300 MG CAPSULE PO SCH (20:25)
[2016-11-25] MEDS ORDERED: Insulin LISPRO 300 UNITS/3 ML VIAL SQ SCH (21:00)
[2016-11-25] MEDS: Budesonide/Formoterol 160/4.5 MDI IH SCH (22:53)
[2016-11-26 00:39] LABS: Basophils # 0.1 K/mcL (0.0-0.2); Basophils % 0.6 %; Eosinophils # 0.3 K/mcL (0.0-0.6); Eosinophils % 2.6 %; Hemoglobin 11.5 g/dL (11.5-15.4); Immature Granulocytes % 0.3 % (0-4); Lymphocytes # 4.4 K/mcL (0.6-4.6); Lymphocytes % 44.2 %; Mean Corpuscular HGB Conc 31.9 g/dL (31.6-35.5); Mean Corpuscular Hemoglobin 29.3 pg (28.0-33.3); Mean Corpuscular Volume 91.6 fL (83.0-100.0); Mean Platelet Volume 10.2 fL (9.4-12.4); Monocytes # 0.9 K/mcL (0.0-1.3); Monocytes % 9.1 %; Neutrophils # 4.3 K/mcL (1.6-8.9); Platelet Count 313 K/mcL (140-400); Red Blood Count 3.93 M/mcL (3.82-4.97); Red Cell Distribution Width 13.2 % (11.5-14.5); Segmented Neutrophils % 43.2 %
[2016-11-26 00:56] LABS: BUN/Creatinine Ratio 15 (6-26); Blood Urea Nitrogen 13 mg/dL (7-20); Calcium 9.8 mg/dL (8.6-10.8); Carbon Dioxide 27 mEq/L (19-29); Chloride 102 mEq/L (98-109); Chol/HDL Ratio 4.2 (0-4.9); Cholesterol 139 mg/dL (< 200); Glucose 185 mg/dL (70-99); HDL Cholesterol 33 mg/dL (40-59); LDL Cholesterol,Calculated 66 mg/dL (0-99); Magnesium 1.6 mg/dL (1.6-2.6); Osmolality,Calculated 293 (280-300); Phosphorous 3.9 mg/dL (2.3-4.7); Potassium 3.6 mEq/L (3.5-4.5); Sodium 139 mEq/L (136-145); Triglycerides 200 mg/dL (< 150); eGFR For African Americans > 60 (> 60); eGFR For Non-African Americans > 60 (> 60)
[2016-11-26] MEDS: *HR* Heparin 5,000 UNIT/ML VIAL SQ SCH (05:40)
[2016-11-26] MEDS: Budesonide/Formoterol 160/4.5 MDI IH SCH (07:54)
[2016-11-26] MEDS: Insulin LISPRO 300 UNITS/3 ML VIAL SQ SCH ×2 (08:32→12:26)
[2016-11-26] MEDS: Furosemide 40 MG TABLET PO SCH (08:33)
[2016-11-26] MEDS: Gabapentin 300 MG CAPSULE PO SCH (08:33)
[2016-11-26] MEDS ORDERED: [UNRECOGNIZED DRUG - OTHER] PO SCH (09:00)
[2016-11-26] MEDS ORDERED: Lisinopril 20 MG TABLET PO SCH (09:00)
[2016-11-26] MEDS ORDERED: predniSONE 20 MG TABLET PO SCH (09:00)
[2016-11-26] MEDS ORDERED: AST PO SCH (09:00)
[2016-11-26] MEDS ORDERED: Isosorbide MONOnitrate (24 HR) 60 MG TAB.ER.24H PO SCH (09:00)
[2016-11-26] MEDS ORDERED: Aspirin Enteric Coated 81 MG Tablet PO SCH (09:00)
[2016-11-26] MEDS ORDERED: DHA PO SCH (09:00)
[2016-11-26] MEDS ORDERED: KRILL PO SCH (09:00)
[2016-11-26] MEDS ORDERED: amLODIPine 5 MG TABLET PO SCH (09:00)
[2016-11-26] MEDS ORDERED: EPA PO SCH (09:00)
[2016-11-26] MEDS ORDERED: PHOSPHO PO SCH (09:00)
--- NOTE | 2016-11-26 15:01 | Discharge Summary ---
Date of Encounter: 11/26/16 Time of Encounter: 14:15 - Discharge Diagnosis (1) Exertional dyspnea Priority: Primary Status: Acute Comments: Acute on chronic though worsened since last Monday. Examination consistent with acute exacerbation of diastolic heart failure and she has been successfully diuresed. Patient states she is back to her baseline. She has tolerated room air since admission. (2) Hypertension Priority: Secondary Status: Chronic Comments: Controlled, follow-up outpatient (3) Lactic acid increased Priority: Primary Status: Acute Comments: Unclear causation but trended down prior to discharge. Follow-up outpatient (4) Diastolic heart failure Priority: Primary Status: Acute Comments: Echocardiogram revealing preserved ejection fraction of 55% with moderate diastolic dysfunction. In review of her chart, she had an echocardiogram in July 2015 which also revealed preserved ejection fraction of 55-60% with moderate diastolic dysfunction. Acute on chronic diastolic heart failure. Mild acute exacerbation. She has been taking furosemide at home for many years but only taking as needed. We will add a low daily dose. She was educated on fluid and sodium restricted diets. (5) Chest pain Priority: Primary Status: Inactive Comments: Ever since the patient was admitted, she stated that she never said she had chest pain. Given that she has memory issues, this was confirmed with her family who also agreed that she never stated she had any chest pain. Her chief complaint was exertional dyspnea and elevated blood pressure Qualifiers: Chest pain type: precordial chest pain Qualified Code(s): R07.2 - Precordial pain (6) Postoperative memory impairment Priority: Secondary Status: Chronic Comments: Patient stating she has been having short-term memory impairment ever since her cardiac surgery in 2004. Qualifiers: Encounter type: sequela Qualified Code(s): T81.89XS - Other complications of procedures, not elsewhere classified, sequela; R41.3 - Other amnesia (7) CAD (coronary artery disease) Priority: Secondary Status: Chronic Qualifiers: Coronary Disease-Associated Artery/Lesion type: bypass graft [place] vs. transplanted heart: [place] heart Associated angina: angina presence unspecified Qualified Code(s): I25.810 - Atherosclerosis of coronary artery bypass graft(s) without angina pectoris (8) DM2 (diabetes mellitus, type 2) Priority: Secondary Status: Chronic Comments: Relatively well controlled with an A1c of 7.6%. Recommend continued follow-up outpatient. Qualifiers: Diabetes mellitus complication status: without complication Diabetes mellitus group home insulin use: without group home use Qualified Code(s): E11.9 - Type 2 diabetes mellitus without complications (9) Hyperlipidemia Priority: Secondary Status: Chronic Comments: Lipid panel essentially unremarkable other than triglyceride 200. Continue statin and low cholesterol diet Qualifiers: Hyperlipidemia type: unspecified Qualified Code(s): E78.5 - Hyperlipidemia , unspecified (10) DVT prophylaxis Priority: Primary Status: Acute Comments: Subcutaneous heparin while admitted (11) Obesity (BMI 30-39.9) Priority: Secondary Status: Chronic - Discharge Medications Prescriptions: Furosemide [Lasix] 20 mg PO DAILY #30 Home Medications: Aspirin Enteric Coated [Aspirin EC] 81 mg PO DAILY #0 07/22/15 [History] Budesonide/Formoterol 160/4.5 [Symbicort 160/4.5] 2 puff IH BIDR #0 07/22/15 [ History] Clopidogrel Bisulfate [Plavix] 75 mg PO DAILY 07/22/15 [History] Nitroglycerin [Nitrostat] 0.4 mg SL PRN PRN 07/22/15 [History] Omeprazole [PriLOSEC] 40 mg PO DAILY 07/22/15 [History] Vitamin E Acid Succinate [Vitamin E] 800 unit PO DAILY 07/22/15 [History] Isosorbide MONOnitrate (24 HR) [Imdur] 120 mg PO DAILY tab.er.24h 07/24/15 [Rx] Paroxetine [Paxil] 20 mg PO DAILY tablet 07/24/15 [Rx] Lisinopril [Zestril] 40 mg PO DAILY 08/07/15 [History] Albuterol Sulfate [Proair Hfa] 2 puff IH Q4H PRN 08/13/15 [History] Atorvastatin [Lipitor] 40 mg PO HS 08/13/15 [History] Metformin HCl [Glucophage] 1,000 mg PO BID 08/13/15 [History] Metoprolol [Lopressor] 25 mg PO BID 08/13/15 [History] Saxagliptin HCl [Onglyza] 5 mg PO DAILY 08/29/16 [History] amLODIPine [Norvasc] 5 mg PO DAILY 08/29/16 [History] Gabapentin [Neurontin] 600 mg PO BID 11/25/16 [History] Glimepiride [Amaryl] 2 mg PO QAM 11/25/16 [History] Krill/Om-3/Dha/Epa/Phospho/Ast [Krill Oil 1,000 mg Softgel] 1 each PO DAILY [History] predniSONE [PredniSONE] 20 mg PO DAILY 11/25/16 [History] Furosemide [Lasix] 20 mg PO DAILY #30 11/26/16 [Rx] Allergies/Adverse Reactions: 3 Allergy/AdvReac Type Severity Reaction Status Date / Time Penicillins [PCN] Allergy Anaphylaxis Verified 08/29/16 14:32 [id number] Reductase AdvReac Intermediate See Verified 08/29/16 14:32 Inhibitor Comments [Statins] bupropion [From Wellbutrin] AdvReac Depression Verified 08/29/16 14:32 Procedures/tests Complete & Pending: Procedures Performed prior 72 hours Category Date Time Status EV echocardiogram Stat Y 11/25/16 17:41 Completed Date of admission: 11/25/16 15:57 Primary care physician: PCP NONE Discharging clinician: Ira Taylor Anticipated date of discharge: 11/26/16 - Patient Status Disposition: Home, Self-Care Condition: Fair Functional capacity at discharge: independent ambulation Overall status at discharge: patient is back to baseline - Discharge Instructions Follow Up With: Usman Villalobos MD [Partnered Physician] - Rodríguez Kumari DO [Partnered Physician] - Additional Instructions: Follow-up with primary care provider within one to 2 weeks, follow-up with cardiology within 2-3 weeks. Check blood pressure daily and keep a log for your primary care provider. - Diet and Activity Activity: increase activity as tolerated Diet: diabetic diet, low fat, low cholesterol (2 L fluid restriction), low salt diet Hospital course: Ms. Manzo is a 61 year old female with past medical history of diabetes, hypertension, hyperlipidemia, CAD status post CABG. Patient presented to the emergency department chief complaint of elevated blood pressure and dyspnea on exertion. Patient stating her exertional dyspnea had worsened over the past weeks but had Really bad in the couple days prior to presentation. She also noted a persistently elevated blood pressure. She called her stenographer [employer]'s office and was instructed to come to the emergency department. Upon arrival, patient's blood pressure was 176/89. ER reporting that the patient stated she had chest pain however after admission, patient denied that she ever told anybody that she had any chest pain. She does have memory impairment issues that she states were as a result of her CABG surgery back in 2004 but her family was present during this admission who also confirmed that she never complained of chest pain. Other than borderline hypertension, workup in the emergency department unremarkable. Chest x-ray negative. Patient was admitted to the hospitalist service for further evaluation and management. Mild lactic acidosis present of unclear etiology but trended down prior to discharge. Patient was alert and oriented 3 during this admission and denied chest pain. She stated her exertional dyspnea and mild pedal edema had resolved overnight while admitted. Her blood pressure was controlled with her regular home dosages other than increased furosemide dosage for diuresing. Echocardiogram consistent with moderate diastolic heart failure with preserved ejection fraction of 55%. In review for chart, this is not a new diagnosis for this patient given that her echocardiogram when compared to the most recent one from 2016 was essentially unchanged. She is also been on furosemide as needed at home. She was started on low-dose furosemide 20 mg daily at home and instructed on 2 L fluid restricted diet as well as a sodium restricted diet. She was euvolemic on examination on day of discharge and denied shortness of breath above her norm. Her lungs were clear to auscultation bilaterally with good aeration. No pedal edema present. Of note, her Plavix was held during this admission as she states that she has a epidural injection coming up in a couple days for pain management per Dr. Amador. She was discharged home in stable condition with close outpatient follow-up recommended. ITS Impressions Chest X-Ray 11/25/16 13:04 IMPRESSION: No acute process. D/ / Johnny Abad MD / Johnny Abad MD Interpreting Provider: Johnny Abad MD Echocardiogram impressions: Technically suboptimal due to poor echocardiographic windows. LVEF 55%. Normal LV chamber size and wall thickness. Not all LV segments were well visualized, but overall LVEF was normal. Moderate left ventricular diastolic dysfunction. Atypical septal motion consistent with postoperative status. Normal right ventricular structure and function. No evidence of pulmonary hypertension. No significant valvular dysfunction. - Time Spent with Patient Total time spent providing and/or coordinating discharge services: - Constitutional Vitals: Temp Pulse Resp BP Pulse Ox 98.2 F 65 16 134/72 94 11/26/16 12:09 11/26/16 12:09 11/26/16 12:09 11/26/16 12:09 11/26/16 12:09 General appearance: Present: cooperative, A&O X 3, pleasant, no acute distress, obese, answers questions appropriately - Head Head exam: Present: atraumatic, normocephalic - Eye Eye exam: Present: PERRL, conjuntiva pink, sclera anicteric Pupils: Present: PERRL - Neck Neck exam general surgery: Present: supple, trachea midline. Absent: lymphadenopathy - Respiratory Respiratory exam: Present: CTAB. Absent: accessory muscle use, decreased breath sounds, rales, respiratory distress, rhonchi, wheezes - Cardiovascular Cardiovascular exam: Present: RRR, +S1, +S2. Absent: diastolic murmur, gallop, rubs, systolic murmur - GI/Abdominal GI/Abdominal exam: Present: normal bowel sounds, soft, no peritoneal signs. Absent: distended, tenderness - Extremities Exam Extremities exam: Present: warm, radial pulses palpable and symmetrical. Absent : calf tenderness, cyanotic, pedal edema - Neurological Exam Neurological exam: Present: alert, CN II-XII intact, normal gait, oriented X3, no focal deficits, strengths equal and symetr throughout. Absent: pronater drift, facial droop, speech deficit - Skin Skin exam: Present: dry, intact, normal color, warm
[2016-11-26 15:10] VITALS: BP 124/73
--- NOTE | 2016-11-28 08:36 | Electrocardiograph Report ---
[facility] Test Date: 2016-11-25 Pat Name: Irish Manzo Department: 104 Room: 3B16 Gender: F Criminal Lawyer: [facility] : 1955 Requested By: Mayra See Order Number: [id number] Reading MD: Segundo Ding MD Measurements Intervals [place] Rate: 73 P: 37 NE: 175 QRS: -57 QRSD: 176 T: 107 QT: 444 QTc: 470 Interpretive Statements SINUS RHYTHM MARKED LEFT AXIS DEVIATION LEFT BUNDLE BRANCH BLOCK Electronically Signed On 11-27-2016 12:10:24 EDT by Segundo Ding MD
== END 2016-11-26 16:00 | disposition home or self-care (01) ==
LOC: 3BNU 12:36 → EMEROO 12:36 → 3BNU 16:24
PROVIDERS: ADMIT Internal Medicine; ATTEND Nurse Practitioner Family